=== PATIENT | male | born 1990 | race Caucasian/White ===

== ENCOUNTER 2020-03-08 11:36 | Outpatient (CLI) | payer OTHER | END 2020-03-08 11:41 | disposition home or self-care (01) | LOC: RAD 11:36 | PROVIDERS: ATTEND Family Medicine | DX: M20.11 Hallux valgus (acquired), right foot (principal); M77.41 Metatarsalgia, right foot; S92.311S Displaced fracture of first metatarsal bone, right foot, sequela ==

== ENCOUNTER 2020-05-09 14:22 | Outpatient (CLI) | payer OTHER | END 2020-05-09 14:28 | disposition home or self-care (01) | LOC: RAD 14:22 | PROVIDERS: ATTEND Specialist | DX: M79.671 Pain in right foot (principal) ==

== ENCOUNTER 2020-05-29 13:10 | Emergency (ER) | payer OTHER ==
[~2020-05-29] VITALS: Ht 205.7 cm; Wt 98.4 kg
== END 2020-05-29 16:38 ==
LOC: ER 13:10
DX: S61.221A Laceration with foreign body of left index finger without damage to nail, initial encounter (principal); W25.XXXA Contact with sharp glass, initial encounter; Y93.89 Activity, other specified; Y92.89 Other specified places as the place of occurrence of the external cause; Y99.8 Other external cause status